=== PATIENT | male | born 1965 | race Caucasian/White ===

== ENCOUNTER → 2016-11-30 | Outpatient (REF) | payer OTHER ==
[~2016-11-30] MED LIST: ASPI325T PO; ATOR40TA PO; DILT240C77 PO; HYDR12CA PO; LISI-538 PO; METF1000 PO; OMEP20CA3 PO; PLAV75TA38 PO; VITA400C2 PO; ZYLO300T4 PO
[2016-11-30 12:27] LABS: INR 0.92
[2016-11-30 12:53] LABS: PERCENT SATURATION 16.9 % (19.7-37.4)
== END ==
LOC: M LAB REF 11:52
DX: Z01.812 Encounter for preprocedural laboratory examination (principal); R94.5 Abnormal results of liver function studies

== ENCOUNTER → 2018-02-04 | Outpatient (CLI) | payer OTHER | LOC: M PLARAD 09:04 | DX: M25.512 Pain in left shoulder (principal) ==

== ENCOUNTER → 2019-08-02 | Outpatient (REF) | payer MEDICARE, OTHER ==
[~2019-08-02] MED LIST changes: +ASPI-1 PO; -ASPI325T PO; -ATOR40TA PO; +ATOR40TA75 PO; +DILT1CAP5 PO; -DILT240C77 PO; -METF1000 PO; +METF10004 PO; -OMEP20CA3 PO; +OMEP20CA4 PO; +PLAV1TAB2 PO; -PLAV75TA38 PO; -VITA400C2 PO; +VITA400C7 PO; -ZYLO300T4 PO; +ZYLO300T6 PO
== END ==
LOC: M LAB REF 12:23
PROVIDERS: ATTEND Family Medicine
DX: M10.9 Gout, unspecified (principal)